=== PATIENT | female | born 1995 | race Caucasian/White ===

== ENCOUNTER 2018-02-05 14:46 | Inpatient (IN) | END 2018-02-09 11:38 | disposition home or self-care (01) | DRG 781 ==

== ENCOUNTER 2018-05-22 13:20 | Outpatient (CLI) | END 2018-05-22 18:42 | disposition home or self-care (01) ==

== ENCOUNTER 2018-09-23 14:43 | Outpatient (CLI) | payer OTHER ==
[~2018-09-23] VITALS: Ht 162.6 cm; Wt 89.9 kg
[~2018-09-23 14:43] MED LIST: INSU100C SQ; NPH,100I5 SQ; PREN-39 PO
[2018-09-23 15:11] VITALS: BP 142/82; PULSE 83; RESP 18; Ht 162.6 cm; Wt 89.9 kg
[2018-09-23] MEDS ORDERED: INSULIN ASPART [NOVOLOG] 3 ML PEN SC ONE (17:30)
[2018-09-23] MEDS ORDERED: INSULIN LISPRO 100 UNIT/ML VIAL SC ONE (17:30)
--- NOTE | 2018-09-23 20:41 | PN ---
Triage Information Date/Time Reason for visit: DFM Weeks of Gestation 37 weeks and 6 days /Para Diabetes: pre-gestational Diabetes management: insulin controlled Hypertention: none Objective Vital Signs Date Temp Pulse Resp B/P (MAP) Pulse Ox O2 O2 Flow FiO2 Time Delivery Rate 09/23/18 98.5 83 18 142/82 15:11 (102) Heart Rate: 130's Heart Rate Comments Reactive Results/Medications Results 24 hrs Laboratory Tests Test 09/23/18 18:00 Bedside Glucose 91 Disposition: Discharge Assessment/Plan Follow up in [facility] on 09/24/2018 TEODORA BRASHER MD Sep 23, 2018 20:41
--- NOTE | 2018-09-23 21:25 | TRIAGE ---
OB Triage Datetime Report Generated by CPN: 09/23/2018 21:25 Datetime: 09/23/2018 18:01 Bedside Blood Glucose: 91 Datetime: 09/23/2018 17:58 Labor Evaluation Frequency: 5-7 Monitor Mode: External Duration (sec)2399: 50-70 Quality: Mild Pattern: Normal: <= 5 Contractions in 10 Minutes Resting Tone [place]: Relaxed Heart Rate FHR Baseline Rate: 155 Monitor Mode: External US Variability: Moderate 6-25 bpm Accelerations: 10X10 Decelerations: None Category: Category I Pain Assessment Pain Scale: 0 Pain Presence: None/Denies Pain Type: N/A Pain Goal: 3 Pain Relief Measures: Comfort Measures Datetime: 09/23/2018 17:22 Stage of : OB Triage Datetime: 09/23/2018 17:00 Labor Evaluation Frequency: 4-6 Monitor Mode: External Duration (sec)2399: 50-70 Quality: Mild Pattern: Normal: <= 5 Contractions in 10 Minutes Resting Tone [place]: Relaxed Heart Rate FHR Baseline Rate: 175 Monitor Mode: External US Variability: Moderate 6-25 bpm Accelerations: None Decelerations: None Category: Category II Pain Assessment Pain Scale: 0 Pain Presence: None/Denies Pain Type: N/A Pain Goal: 3 Pain Relief Measures: Comfort Measures Datetime: 09/23/2018 16:48 Stage of : OB Triage Datetime: 09/23/2018 15:50 Labor Evaluation Frequency: 2-5 Monitor Mode: External Duration (sec)2399: 30-50 Quality: Mild Pattern: Normal: <= 5 Contractions in 10 Minutes Resting Tone [place]: Relaxed Heart Rate FHR Baseline Rate: 155 Monitor Mode: External US Variability: Moderate 6-25 bpm Accelerations: 10X10 Decelerations: None Category: Category I Pain Assessment Pain Scale: 0 Pain Presence: None/Denies Pain Type: N/A Pain Goal: 3 Pain Relief Measures: Comfort Measures Datetime: 09/23/2018 15:26 Stage of : OB Triage Datetime: 09/23/2018 14:56 Stage of : OB Triage Assessment Type: Triage Maternal Assessment Level of Consciousness: Fully Conscious DTR's/Clonus: DTRs 2+; No Clonus Headache: Denies Blurred Vision: No Respiratory Effort: Unlabored; Regular Rhythm; Equal Expansion Breath Sounds, Left: Clear and Equal Breath Sounds, Right: Clear and Equal Nausea/Vomiting: Denies RUQ Epigastric Pain: Denies Facial Edema: None Temperature Route: Axillary Fall Risk Assessment History of Falling: (0) No Secondary Diagnosis: (0) No Ambulatory Aid: (0) Bedrest/Nurse Assist IV Therapy: (0) No Gait: (0) Normal/Bedrest/Immobile Mental Status: (0) Oriented to Own Ability Fall Score: 0 Fall Risk Score Definition: No Risk: No action required Labor Evaluation Frequency: 2-3 Monitor Mode: External Duration (sec)2399: 30-50 Quality: Mild Pattern: Normal: <= 5 Contractions in 10 Minutes Resting Tone [place]: Relaxed Heart Rate FHR Baseline Rate: 150 Monitor Mode: External US Variability: Minimal - Undetectable to <=5 bpm Accelerations: None Decelerations: None Category: Category I Pain Assessment Pain Scale: 3 Pain Presence: Intermittent Pain Type: Cramping; Contraction Pain Location: Abdomen Pain Goal: 3 Pain Relief Measures: Comfort Measures Datetime: 09/23/2018 14:53 Time of Arrival: 09/23/2018 14:32 EGA: 37.6 Arrived By: Ambulatory Arrived From: Other Unit in Hospital Chief Complaint: REFERRRED FROM [facility] FOR DECEL AND EXTENDED MONITORING, OCCAS UC, POSSIBLE LEAKING, DENIES BLEEDING Movement: Decreased Contractions: Occasional Contractions: 2X HOUR Rupture of Membranes: Denies Vaginal Bleeding: None Vaginal Discharge: Present Recent Sexual Intercouse: Denies Abdominal Trauma: Not Applicable Patient Complaints: Cramping Initial Plan: MONITOR, VE Datetime: 08/26/2018 18:31 Stage of : Antepartum Datetime: 08/26/2018 18:26 Stage of : Antepartum Datetime: 08/26/2018 18:21 Stage of : Antepartum Datetime: 08/26/2018 17:15 Stage of : Antepartum Datetime: 08/26/2018 16:24 Stage of : Antepartum Temperature Route: Oral Pain Assessment Pain Scale: 0 Pain Presence: None/Denies Pain Type: N/A Datetime: 08/26/2018 16:20 Stage of : Antepartum Datetime: 08/26/2018 16:12 Stage of : Antepartum Datetime: 08/26/2018 16:10 Stage of : Antepartum Datetime: 08/26/2018 14:59 Stage of : Antepartum Bedside Blood Glucose: 151 (Annotations: @hour PPBS lunch) Datetime: 08/26/2018 14:00 Stage of : Antepartum Datetime: 08/26/2018 12:26 Stage of : Antepartum Datetime: 08/26/2018 12:22 Stage of : Antepartum Temperature Route: Oral Pain Assessment Pain Scale: 0 Pain Presence: None/Denies Pain Type: N/A Datetime: 08/26/2018 11:30 Stage of : Antepartum Datetime: 08/26/2018 11:19 Labor Evaluation Frequency: x1 Monitor Mode: External Duration (sec)2399: 70 Quality: Mild Pattern: Normal: <= 5 Contractions in 10 Minutes Resting Tone [place]: Relaxed Heart Rate FHR Baseline Rate: 150 Monitor Mode: External US FHR Baseline Changes: No Baseline Change Variability: Moderate 6-25 bpm Accelerations: 15X15 Decelerations: None Category: Category I Pain Assessment Pain Scale: 0 Pain Presence: None/Denies Pain Type: N/A Datetime: 08/26/2018 10:55 Bedside Blood Glucose: 97 (Annotations: 2 hour PPBS) Datetime: 08/26/2018 10:46 Monitor Mode: External Monitor Mode: External US Comments: NST started Datetime: 08/26/2018 07:59 Stage of : Antepartum Temperature Route: Oral Pain Assessment Pain Scale: 0 Pain Presence: None/Denies Pain Type: N/A Datetime: 08/26/2018 07:55 Bedside Blood Glucose: 105 (Annotations: FBS) Datetime: 08/26/2018 07:30 Assessment Type: Ongoing Assessment Maternal Assessment Level of Consciousness: Fully Conscious DTR's/Clonus: DTRs 2+; No Clonus Headache: Denies Blurred Vision: No Respiratory Effort: Unlabored; Regular Rhythm; Equal Expansion Breath Sounds, Left: Clear and Equal Breath Sounds, Right: Clear and Equal Nausea/Vomiting: Denies RUQ Epigastric Pain: Denies Lower Extremities Edema: None Degree: None Upper Extremities Edema: None Degree: None Facial Edema: None Fall Risk Assessment History of Falling: (0) No Secondary Diagnosis: (0) No Ambulatory Aid: (0) Bedrest/Nurse Assist IV Therapy: (0) No Gait: (0) Normal/Bedrest/Immobile Mental Status: (0) Oriented to Own Ability Fall Score: 0 Fall Risk Score Definition: No Risk: No action required Datetime: 08/26/2018 05:26 Maternal Assessment Level of Consciousness: Fully Conscious Headache: Denies Blurred Vision: No Respiratory Effort: Unlabored; Regular Rhythm; Equal Expansion Breath Sounds, Left: Clear and Equal Breath Sounds, Right: Clear and Equal Temperature Route: Oral Pain Presence: None/Denies Datetime: 08/26/2018 00:44 Stage of : Antepartum Temperature Route: Oral Comments: NST Q SHIFT,PT STATD FEELING BABBY MOVING. Pain Presence: None/Denies Datetime: 08/25/2018 23:11 Stage of : Antepartum Assessment Type: Ongoing Assessment Maternal Assessment Level of Consciousness: Fully Conscious DTR's/Clonus: DTRs 2+; No Clonus Headache: Denies Blurred Vision: No Respiratory Effort: Unlabored; Regular Rhythm; Equal Expansion Breath Sounds, Left: Clear and Equal Breath Sounds, Right: Clear and Equal Nausea/Vomiting: Denies RUQ Epigastric Pain: Denies Lower Extremities Edema: None Degree: None Upper Extremities Edema: None Degree: None Facial Edema: None Temperature Route: Oral Fall Risk Assessment History of Falling: (0) No Secondary Diagnosis: (0) No Ambulatory Aid: (0) Bedrest/Nurse Assist IV Therapy: (0) No Gait: (0) Normal/Bedrest/Immobile Mental Status: (0) Oriented to Own Ability Fall Score: 0 Fall Risk Score Definition: No Risk: No action required Pain Presence: None/Denies Datetime: 08/25/2018 21:31 Fall Score: 0 Fall Risk Score Definition: No Risk: No action required Datetime: 08/25/2018 20:35 EGA: 33.5 Datetime: 08/25/2018 20:23 Fall Score: 0 Fall Risk Score Definition: No Risk: No action required Datetime: 05/22/2018 13:45 Fall Score: 0 Fall Risk Score Definition: No Risk: No action required Datetime: 05/22/2018 13:44 EGA: 20.1 Datetime: 02/05/2018 20:05 Fall Score: 0 Fall Risk Score Definition: No Risk: No action required Datetime: 02/05/2018 15:13 Fall Score: 0 Fall Risk Score Definition: No Risk: No action required Datetime: 02/05/2018 14:46 EGA: 5.0 Datetime: 02/05/2018 14:45 EGA: -47.1
== END 2018-09-23 20:42 | disposition home or self-care (01) ==
LOC: OBT 14:43 → L-D 14:44 → OBT 20:42
PROVIDERS: ATTEND Obstetrics & Gynecology
DX: O36.8130 Decreased fetal movements, third trimester, not applicable or unspecified (principal); Z3A.37 37 weeks gestation of pregnancy; O24.313 Unspecified pre-existing diabetes mellitus in pregnancy, third trimester; E11.8 Type 2 diabetes mellitus with unspecified complications; Z79.4 Long term (current) use of insulin
CPT/HCPCS: 76818; 82962; J1815; Z7500; G0463

== ENCOUNTER 2018-09-25 15:09 | Outpatient (CLI) | payer OTHER ==
[~2018-09-25] VITALS: Ht 162.6 cm; Wt 91.0 kg
[2018-09-25 15:45] VITALS: Ht 162.6 cm; Wt 91.0 kg
[2018-09-25 15:46] VITALS: BP 126/84; PULSE 83; RESP 18
--- NOTE | 2018-09-25 17:33 | TRIAGE ---
OB Triage Datetime Report Generated by CPN: 09/25/2018 17:33 Datetime: 09/25/2018 16:54 Stage of : OB Triage Datetime: 09/25/2018 16:21 Frequency: 6-7 Monitor Mode: External Duration (sec)2399: 40-50 Quality: Mild Pattern: Normal: <= 5 Contractions in 10 Minutes Resting Tone [place]: Relaxed FHR Baseline Rate: 145 Monitor Mode: External US Variability: Moderate 6-25 bpm Accelerations: 10X10 Decelerations: None Category: Category I Pain Scale: 1 Pain Presence: Intermittent Pain Type: Cramping Pain Location: Abdomen Pain Goal: 3 Pain Relief Measures: Comfort Measures Datetime: 09/25/2018 16:20 Stage of : OB Triage Datetime: 09/25/2018 15:39 Stage of : OB Triage Datetime: 09/25/2018 15:20 Stage of : OB Triage Assessment Type: Triage Level of Consciousness: Fully Conscious DTR's/Clonus: DTRs 2+; No Clonus Headache: Denies Blurred Vision: No Respiratory Effort: Unlabored; Regular Rhythm; Equal Expansion Breath Sounds, Left: Clear and Equal Breath Sounds, Right: Clear and Equal Nausea/Vomiting: Denies RUQ Epigastric Pain: Denies Facial Edema: None Temperature Route: Axillary History of Falling: (0) No Secondary Diagnosis: (0) No Ambulatory Aid: (0) Bedrest/Nurse Assist IV Therapy: (0) No Gait: (0) Normal/Bedrest/Immobile Mental Status: (0) Oriented to Own Ability Fall Score: 0 Fall Risk Score Definition: No Risk: No action required Frequency: 6-7 Monitor Mode: External Duration (sec)2399: 40-60 Quality: Mild Pattern: Normal: <= 5 Contractions in 10 Minutes Resting Tone [place]: Relaxed FHR Baseline Rate: 145 Monitor Mode: External US Variability: Moderate 6-25 bpm Accelerations: 10X10 Decelerations: None Category: Category I Pain Scale: 1 Pain Presence: None/Denies Pain Type: Cramping Pain Location: Abdomen Pain Goal: 3 Pain Relief Measures: Comfort Measures Datetime: 09/25/2018 15:02 Time of Arrival: 09/25/2018 15:02 EGA: 38.1 Chief Complaint: REFERRRED FROM [facility] FOR DECEL AND EXTENDED MONITORING, OCCAS UC, POSSIBLE LEAKING, DENIES BLEEDING Movement: Present Contractions: Irregular Rupture of Membranes: Denies Vaginal Bleeding: None Vaginal Discharge: Denies Recent Sexual Intercouse: Denies Abdominal Trauma: Not Applicable Patient Complaints: Cramping Time Provider Notified: 09/25/2018 15:39 Provider Notified: ANSHU Initial Plan: MONITOR, BPP Datetime: 09/23/2018 20:36 Stage of : OB Triage Monitor Mode: External Quality: Mild Pattern: Normal: <= 5 Contractions in 10 Minutes Resting Tone [place]: Relaxed FHR Baseline Rate: 130 Monitor Mode: External US FHR Baseline Changes: No Baseline Change Variability: Moderate 6-25 bpm Accelerations: 15X15 Decelerations: None Category: Category I Datetime: 09/23/2018 19:33 Stage of : OB Triage Frequency: ocas Monitor Mode: External Quality: Mild Pattern: Normal: <= 5 Contractions in 10 Minutes Resting Tone [place]: Relaxed FHR Baseline Rate: 140 Monitor Mode: External US FHR Baseline Changes: No Baseline Change Variability: Moderate 6-25 bpm Accelerations: 15X15 Decelerations: None Category: Category I Pain Scale: 0 Pain Presence: None/Denies Pain Type: N/A
--- NOTE | 2018-09-25 18:48 | PN ---
Triage Information Date/Time September 25, 2018 Reason for visit: Weeks of Gestation 38 weeks and 1 day /Para 4 para 3 Diabetes: pre-gestational Diabetes management: insulin controlled Hypertention: none Additional information 23-year-old with IUP at 38 weeks and 1 day and type 2 diabetes pre- gestational was sent for testing. She had been followed for testing twice a week and [facility]. Patient denies any leaking of fluid, vaginal bleeding or contractions. Denies any complaint today. Objective Vital Signs Date Temp Pulse Resp B/P (MAP) Pulse Ox O2 O2 Flow FiO2 Time Delivery Rate 09/25/18 98.6 83 18 126/84 15:46 (98) Heart Rate: 130's Heart Rate Comments category 1 Contractions: None Exam Appearance: Alert and oriented x4 does not appear to be in any acute distress Abdomen: Soft, gravid, fundal height consider gestational age, no tenderness, no rebound tenderness, no guarding or rigidity No contraction noted on the monitor NST: Category 1 and reactive BPP: 02/26 BEL: 13.6 Results/Medications Results 24 hrs Laboratory Tests Test 09/25/18 15:34 Bedside Glucose 176 Imaging Results PROCEDURE: US OB biophysical profile. CLINICAL INDICATION: decreased movements, diabetes TECHNIQUE: Multiple sonographic images of the pelvis were obtained. The images were reviewed on a PACS workstation. COMPARISON: 09/23/2018 FINDINGS: There is a single live intrauterine gestation. Cardiac activity is present with 171 beats per minute. There is a vertex presentation. The placenta is left lateral. There is no evidence of placental abruption. There is a normal amount of amniotic fluid with an BEL = 13.6 cm. Biophysical profile: movement 2/2 tone 2/2. breathing 2/2 BEL 2/2 Total 02/26 RPTAT: AA . IMPRESSION: Normal biophysical profile. . Disposition: Discharge Assessment/Plan IUP at 38 weeks and 1 day Pre-gestational diabetes, type II testing reassuring Patient has a follow-up with her primary OB office tomorrow She is a stable for discharge. NST reactive, BPP 02/26 Strict labor precautions kick count and giving her follow-up appointment tomorrow with her primary OB discussed with the patient Follow-up with NST/BPP twice a week and plan for delivery to be established by her primary OB discussed with the patient Patient verbalized understanding. Advised the patient to return to triage if she has any leaking, contractions, decreased movement or any other concern immediately Patient verbalized understanding. All questions were answered to patient's best satisfaction WATSON BROWN MD Sep 25, 2018 18:48
== END 2018-09-25 17:10 | disposition home or self-care (01) ==
LOC: OBT 15:09 → L-D 15:10 → OBT 17:10
PROVIDERS: ATTEND Obstetrics & Gynecology
DX: O24.414 Gestational diabetes mellitus in pregnancy, insulin controlled (principal); Z3A.38 38 weeks gestation of pregnancy
CPT/HCPCS: 76818; 82962; Z7500; G0463

== ENCOUNTER 2018-09-26 16:32 | Inpatient (IN) | payer OTHER ==
[~2018-09-26] VITALS: Ht 162.6 cm; Wt 91.1 kg
[2018-09-26 16:59] VITALS: Ht 162.6 cm; Wt 91.1 kg
[2018-09-26 17:00] VITALS: BP 173/90; PULSE 90; RESP 18
[2018-09-26] MEDS ORDERED: LACTATED RINGER'S 1,000 ML IV SCH (18:37)
[2018-09-26] MEDS ORDERED: OXYTOCIN 30 UNITS/LR 500 ML IV SCH ×3 (19:00→22:00)
[2018-09-26] MEDS ORDERED: OXYTOCIN 30 UNITS/LR 500 ML IV PRN (19:00)
[2018-09-26] MEDS ORDERED: LIDOCAINE 1% (MPF) 30 ML INJ INJ PRN (19:00)
[2018-09-26] MEDS ORDERED: MISOPROSTOL 200 MCG TAB PR PRN (19:00)
[2018-09-26] MEDS ORDERED: METHYLERGONOVINE 0.2 MG INJ IM PRN (19:00)
[2018-09-26] MEDS ORDERED: CARBOPROST 250 MCG INJ IM PRN (19:00)
[2018-09-26] MEDS ORDERED: AMPICILLIN 2 GM/NS (PMX) 100 ML IV ONE (22:00)
[2018-09-26] MEDS ORDERED: MINERAL OIL LIGHT 10 ML VIAL TOP PRN (22:00)
[2018-09-26] MEDS: LACTATED RINGER'S 1,000 ML IV SCH (22:34)
--- NOTE | 2018-09-27 00:23 | TRIAGE ---
OB Triage Datetime Report Generated by CPN: 09/27/2018 00:23 Datetime: 09/27/2018 00:00 Stage of : Labor Frequency: 1-5.5 Monitor Mode: External Duration (sec)2399: 70-180 Quality: Moderate Pattern: Normal: <= 5 Contractions in 10 Minutes Resting Tone [place]: Relaxed FHR Baseline Rate: 135 Monitor Mode: External US Variability: Moderate 6-25 bpm Accelerations: 15X15 Decelerations: None Category: Category I Pain Scale: 3 Pain Presence: Intermittent Pain Type: Cramping Pain Location: Abdomen Pain Goal: 3 Pain Relief Measures: Comfort Measures Datetime: 09/26/2018 23:30 Stage of : Labor Frequency: 1-7 Monitor Mode: External Duration (sec)2399: 50-80 Quality: Mild Pattern: Normal: <= 5 Contractions in 10 Minutes Resting Tone [place]: Relaxed FHR Baseline Rate: 135 Monitor Mode: External US Variability: Moderate 6-25 bpm Accelerations: 15X15 Decelerations: None Category: Category I Pain Presence: None/Denies Datetime: 09/26/2018 23:02 Assessment Type: Admission Assessment Vaginal Bleeding: None Level of Consciousness: Fully Conscious DTR's/Clonus: DTRs 2+; No Clonus Headache: Denies Blurred Vision: No Respiratory Effort: Unlabored; Regular Rhythm; Equal Expansion Breath Sounds, Left: Clear and Equal Breath Sounds, Right: Clear and Equal Nausea/Vomiting: Denies RUQ Epigastric Pain: Denies Lower Extremities Edema: None Upper Extremities Edema: None Facial Edema: None History of Falling: (0) No Secondary Diagnosis: (0) No Ambulatory Aid: (0) Bedrest/Nurse Assist IV Therapy: (0) No Gait: (0) Normal/Bedrest/Immobile Mental Status: (0) Oriented to Own Ability Fall Score: 0 Fall Risk Score Definition: No Risk: No action required Pain Presence: None/Denies Membrane Status: Intact Datetime: 09/26/2018 23:00 Stage of : Labor Frequency: 2-12 Monitor Mode: External Duration (sec)2399: 50-120 Quality: Mild Pattern: Normal: <= 5 Contractions in 10 Minutes Resting Tone [place]: Relaxed FHR Baseline Rate: 140 Monitor Mode: External US Variability: Moderate 6-25 bpm Accelerations: 15X15 Decelerations: None Category: Category I Pain Presence: None/Denies Datetime: 09/26/2018 22:00 Stage of : Labor Frequency: 2-10 Monitor Mode: External Duration (sec)2399: 50-120 Quality: Mild Pattern: Normal: <= 5 Contractions in 10 Minutes Resting Tone [place]: Relaxed FHR Baseline Rate: 135 Monitor Mode: External US Variability: Moderate 6-25 bpm Accelerations: 15X15 Decelerations: None Category: Category I Pain Presence: None/Denies Datetime: 09/26/2018 21:16 Dilatation (cms): 4.0 Effacement (%): 50 Station: -2 Exam By: BELLA Vaginal Bleeding: None Cervix, Consistency: Soft Cervix, Position: Midposition Datetime: 09/26/2018 21:00 Stage of : Labor Frequency: 3-10 Monitor Mode: External Duration (sec)2399: 50-120 Quality: Mild Pattern: Normal: <= 5 Contractions in 10 Minutes Resting Tone [place]: Relaxed FHR Baseline Rate: 140 Monitor Mode: External US Variability: Moderate 6-25 bpm Accelerations: 15X15 Decelerations: None Category: Category I Pain Presence: None/Denies Datetime: 09/26/2018 20:00 Stage of : Labor Frequency: 1-10 Monitor Mode: External Duration (sec)2399: 50-120 Quality: Mild Pattern: Normal: <= 5 Contractions in 10 Minutes Resting Tone [place]: Relaxed FHR Baseline Rate: 135 Monitor Mode: External US Variability: Moderate 6-25 bpm Accelerations: 15X15 Decelerations: None Category: Category I Datetime: 09/26/2018 19:31 Bedside Blood Glucose: 120 Datetime: 09/26/2018 19:26 Assessment Type: Triage Level of Consciousness: Fully Conscious DTR's/Clonus: DTRs 2+; No Clonus Headache: Denies Blurred Vision: No Respiratory Effort: Unlabored; Regular Rhythm; Equal Expansion Breath Sounds, Left: Clear and Equal Breath Sounds, Right: Clear and Equal Nausea/Vomiting: Denies RUQ Epigastric Pain: Denies Lower Extremities Edema: None Degree: None Upper Extremities Edema: None Degree: None Facial Edema: None History of Falling: (0) No Secondary Diagnosis: (0) No Ambulatory Aid: (0) Bedrest/Nurse Assist IV Therapy: (0) No Gait: (0) Normal/Bedrest/Immobile Mental Status: (0) Oriented to Own Ability Fall Score: 0 Fall Risk Score Definition: No Risk: No action required Datetime: 09/26/2018 19:00 Stage of : Labor Frequency: 1-8 Monitor Mode: External Duration (sec)2399: 60-150 Quality: Mild Pattern: Normal: <= 5 Contractions in 10 Minutes Resting Tone [place]: Relaxed FHR Baseline Rate: 140 Monitor Mode: External US Variability: Moderate 6-25 bpm Accelerations: 15X15 Decelerations: Late; Prolonged (Annotations: MILD DECEL 140-132BPM THEN BACK TO 140) Category: Category II Datetime: 09/26/2018 18:14 Stage of : OB Triage Datetime: 09/26/2018 18:12 Stage of : OB Triage Datetime: 09/26/2018 18:00 Stage of : OB Triage Frequency: 1-9 Monitor Mode: External Duration (sec)2399: 60-130 Quality: Mild Pattern: Normal: <= 5 Contractions in 10 Minutes Resting Tone [place]: Relaxed FHR Baseline Rate: 140 Monitor Mode: External US Variability: Moderate 6-25 bpm Accelerations: 15X15 Decelerations: None Category: Category I Datetime: 09/26/2018 16:54 Stage of : OB Triage Assessment Type: Triage Level of Consciousness: Fully Conscious DTR's/Clonus: DTRs 2+; No Clonus Headache: Denies Blurred Vision: No Respiratory Effort: Unlabored; Regular Rhythm; Equal Expansion Breath Sounds, Left: Clear and Equal Breath Sounds, Right: Clear and Equal Nausea/Vomiting: Denies RUQ Epigastric Pain: Denies Facial Edema: None Temperature Route: Axillary History of Falling: (0) No Secondary Diagnosis: (0) No Ambulatory Aid: (0) Bedrest/Nurse Assist IV Therapy: (0) No Gait: (0) Normal/Bedrest/Immobile Mental Status: (0) Oriented to Own Ability Fall Score: 0 Fall Risk Score Definition: No Risk: No action required Monitor Mode: External Quality: Mild Pattern: Normal: <= 5 Contractions in 10 Minutes Resting Tone [place]: Relaxed FHR Baseline Rate: 165 Monitor Mode: External US Variability: Moderate 6-25 bpm Decelerations: None Pain Scale: 3 Pain Presence: None/Denies Pain Type: N/A Pain Goal: 0 Datetime: 09/26/2018 16:51 Time of Arrival: 09/26/2018 16:29 EGA: 38.2 Arrived By: Ambulatory Arrived From: Home Chief Complaint: REFERRED FROM CLINIC FOR DFM, DENIES LEAKING, BLEEDING OR UC'S Movement: Decreased Contractions: Denies/Absent Rupture of Membranes: Denies Vaginal Bleeding: None Vaginal Discharge: Denies Recent Sexual Intercouse: Denies Abdominal Trauma: Not Applicable Patient Complaints: None Initial Plan: MONITOR, BPP, EFW Datetime: 09/25/2018 15:20 Fall Score: 0 Fall Risk Score Definition: No Risk: No action required Datetime: 09/25/2018 15:02 EGA: 38.1 Datetime: 09/23/2018 14:56 Fall Score: 0 Fall Risk Score Definition: No Risk: No action required Datetime: 09/23/2018 14:53 EGA: 37.6 Datetime: 08/26/2018 07:30 Fall Score: 0 Fall Risk Score Definition: No Risk: No action required Datetime: 08/25/2018 23:11 Fall Score: 0 Fall Risk Score Definition: No Risk: No action required Datetime: 08/25/2018 21:31 Fall Score: 0 Fall Risk Score Definition: No Risk: No action required Datetime: 08/25/2018 20:35 EGA: 33.5 Datetime: 08/25/2018 20:23 Fall Score: 0 Fall Risk Score Definition: No Risk: No action required Datetime: 05/22/2018 13:45 Fall Score: 0 Fall Risk Score Definition: No Risk: No action required Datetime: 05/22/2018 13:44 EGA: 20.1 Datetime: 02/05/2018 20:05 Fall Score: 0 Fall Risk Score Definition: No Risk: No action required Datetime: 02/05/2018 15:13 Fall Score: 0 Fall Risk Score Definition: No Risk: No action required Datetime: 02/05/2018 14:55 Presentation 'A': Cephalic
[2018-09-27] MEDS: LACTATED RINGER'S 1,000 ML IV SCH ×2 (02:18→09:53)
[2018-09-27] MEDS: AMPICILLIN 1 GM/NS (PMX) 50 ML IV SCH ×3 (02:18→10:40)
[2018-09-27] MEDS: DEXTROSE 5%-LR 1,000 ML IV SCH ×2 (02:51→07:52)
[2018-09-27] MEDS ORDERED: CITRIC ACID/NA CITRATE 30 ML CUP ONE (09:46)
[2018-09-27] MEDS ORDERED: CITRIC ACID/NA CITRATE 30 ML CUP PO ONE (10:00)
--- NOTE | 2018-09-27 10:07 | PREAC ---
Date/Time of Note Date/Time of Note DATE: 09/27/18 TIME: 10:05 Anesthesia Eval and Record Evaluation Time Pre-Procedure Interview DATE: 09/27/18 TIME: 10:05 Age 23 Sex female NPO: 8 hrs Preoperative diagnosis LABOR PAIN Planned procedure LABOR EPIDURAL Past Medical History Past Medical History: Includes Endo: Diabetes : : (4), Para: (3), Gestational age: (38 3/7), PIH Surgery & Anesthesia Issues No known issue Meds Anticoagulation: No Beta Graham within 24 hr: No Reason Beta Graham not given: Pt. not on B-Graham Reported Medications NPH, Human Insulin Isophane (Humulin N Kwikpen) 100 Unit/1 Ml Insuln.pen, 35 UNIT SQ AC BREAKFAST DINNER, EA 08/25/18 Insulin Lispro (Humalog) 100 Unit/1 Ml Cartridge, 25 UNIT SQ AC BREAKFAST DINNER, EA 08/25/18 Vits W-Ca,Fe,Fa(<1MG) ( Vitamins) 1 Tab Tablet, 1 TAB PO DAILY 12/03/12 Current Medications Lactated Ringer's 1,000 ml @ 125 mls/hr Q8H IV Last administered on 09/27/18at 09:53; Admin Dose 125 MLS/HR; Start 09/26/18 at 18:37 Dextrose/Lactated Ringer's 1,000 ml @ 125 mls/hr Q8H IV Last administered on 09/27/18at 02:51; Admin Dose 125 MLS/HR; Start 09/26/18 at 18:37 Lidocaine (Xylocaine 1% (Mpf)) 30 ml ONCE PRN INJ .EPISIOTOMY; Start 09/26/18 at 19:00 Oxytocin/Lactated Ringer's 500 ml @ 500 mls/hr ONCE POST IV ; Start 09/26/18 at 19:00 Oxytocin/Lactated Ringer's 500 ml @ 125 mls/hr POST IV ; Start 09/26/18 at 19:00 Oxytocin/Lactated Ringer's 500 ml @ 0 mls/hr ONCE PRN IV .VAGINAL BLEEDING; Start 09/26/18 at 19:00 Methylergonovine Maleate (Methergine) 0.2 mg ONCE PRN IM .VAGINAL BLEEDING; Start 09/26/18 at 19:00 Carboprost Tromethamine (Hemabate) 250 mcg ONCE PRN IM .VAGINAL BLEEDING; Start 09/26/18 at 19:00 Misoprostol (Cytotec) 1,000 mcg ONCE PRN NE .VAGINAL BLEEDING; Start 09/26/18 at 19:00 Ampicillin 50 ml @ 100 mls/hr Q4H IV Last administered on 09/27/18at 06:30; Admin Dose 100 MLS/HR; Start 09/27/18 at 02:00 Oxytocin/Lactated Ringer's 500 ml @ 0 mls/hr FOR INDUCTION IV Last administered on 09/26/18at 23:10; Admin Dose 1 MLS/HR; Start 09/26/18 at 22:00 Meds reviewed: Yes Allergies Coded Allergies: ciprofloxacin (Verified Allergy, Intermediate, RASH OVER FACE AND NECK, ) RE-ENTERED UNCODED ALLERGY CODED Allergies Reviewed: Yes Labs/Studies Labs Reviewed: Reviewed by anesthesiologist Result Diagram: 09/26/18 1900 09/26/18 1900 Laboratory Tests 09/26/18 19:00 Blood Bank Test 09/26/18 19:00 Antibody Screen NEGATIVE Blood Type O POSITIVE Rh Immune Globulin Candidate NO test: N/A Pre-procedure Exam Last vitals Vital Signs Date Temp Pulse Resp B/P (MAP) Pulse Ox O2 O2 Flow FiO2 Time Delivery Rate 09/26/18 98.4 90 18 173/90 17:00 (117) Airway: Adequate mouth opening, Adequate thyromental dist Mallampati: Mallampati II Teeth: Normal Lung: Normal Heart: Normal ASA Physical Status ASA physical status: 2 Emergency: None Planned Anesthetic Neuraxial: Epidural Planned Pain Management Epidural Pre-operative Attestations Prior to commencing anesthesia and surgery, the patient was re-evaluated, there was verification of: *The patient's identity *The results of appropriate recent lab work and preoperative vital signs *The above evaluation not changing prior to induction *Anesthetic plan, risk benefits, alternative and complications discussed with patient/family; questions answered; patient/family understands, accepts and wishes to proceed. Jeff Aviles M.D. Sep 27, 2018 10:07
[2018-09-27] MEDS ORDERED: FENTAnyl 2MCG/ML-ROPIV 0.2% 100 ML ONE (10:08)
--- NOTE | 2018-09-27 10:40 | PAC ---
Date/Time of Note Date/Time of Note DATE: 09/27/18 TIME: 10:40 Post-Anesthesia Notes Post-Anesthesia Note Last documented vital signs Vital Signs Date Temp Pulse Resp B/P (MAP) Pulse Ox O2 O2 Flow FiO2 Time Delivery Rate 09/27/18 98.4 90 18 173/90 10:40 (117) Activity: WNL Respiratory function: WNL Cardiovascular function: WNL Mental status: Baseline Pain reasonably controlled: Yes Hydration appropriate: Yes Nausea/Vomiting absent: Yes Jeff Aviles M.D. Sep 27, 2018 10:40
[2018-09-27] MEDS ORDERED: FENTAnyl 2MCG/ML-ROPIV 0.2% 100 ML BAG EPI SCH (11:00)
[2018-09-27] MEDS ORDERED: NALOXONE (0.4 MG/ML) INJ IV PRN (11:00)
[2018-09-27] MEDS ORDERED: TRIMETHOBENZAMIDE 100 MG/ML VIAL IM PRN (11:00)
[2018-09-27] MEDS ORDERED: DIPHENHYDRAMINE 50 MG INJ IV PRN (11:00)
[2018-09-27] MEDS ORDERED: ONDANSETRON 4 MG INJ IV PRN (11:00)
--- NOTE | 2018-09-27 15:24 | LDN ---
Date/Time of Note Date/Time of Note DATE: 09/27/18 TIME: 15:21 Delivery Summary of female with subtle facial feature ? NIPT was done but no result is available Weeks of Gestation 38w2d Placenta Delivered: Spontaneously, Intact & Complete Episiotomy: No Perineal laceration: 0 Anesthesia type: Epidural Estimated blood loss: 200 Sponge & Needle done & correct: Yes All needle counts correct: Yes Any foreign bodies felt in the: No Delivery Information Sex Infant Sex: female Apgars 1 Minute: 8 5 Minute: 9 Suctioning Nose & mouth suctioned at judi: Yes Delee suction performed: Yes Umbilical Cord Umbilical cord with: 3 Vessels Cord presentations: no nuchal cord Cord Blood was obtained: Yes Mother & Baby Disposition Disposition Mom & Baby to Maternity; Good: Yes Mom transferred to: Other Baby to NICU: No () VIVIANE DEVLIN MD Sep 27, 2018 15:24
--- NOTE | 2018-09-27 15:26 | HP ---
Date/Time of Note Date/Time of Note DATE: 09/27/18 TIME: 15:21 OB - History Hx of Present Chief Complaint: Decreased movement Estimated Due Date: Oct 08, 2018 : 4 Para: 3 Spontaneous : 0 Therapeutic : 0 Care: Good Care Ultrasounds: Normal mid trimester US Obstetrical Complications: Pre-eclampsia Medical Complications: Other (Type II DM) Past Family/Social History * Past Medical, Surgical, Family and Obstetric Histories reviewed from chart. GBS Status: Positive OB Admission Exam Vital Signs Vital Signs Vital Signs Date Temp Pulse Resp B/P (MAP) Pulse Ox O2 O2 Flow FiO2 Time Delivery Rate 09/26/18 98.4 90 18 173/90 17:00 (117) Physical Exam HEENT: WNL Heart: Rhythm Normal Lungs: Clear, Equal Abdomen: WNL Extremities: Normal Reflexes: Normal Cervical Dilatation: 4cm Effacement: 50% Station: -2 Membranes: Intact Heart Rate: 120's Accelerations: Accelerations Present Decelerations: No Decelerations Varibility: Moderate Last 72 hourBlood Glucose Bedside Glucose - 72 Hours Test 09/26/18 19:31 09/26/18 23:30 09/27/18 02:21 09/27/18 04:39 Bedside 120 105 99 123 Glucose mg/dL (70-220) mg/dL (70-220) mg/dL (70-220) mg/dL (70-220) Test 09/27/18 06:33 09/27/18 08:38 09/27/18 11:00 09/27/18 13:35 Bedside 103 103 119 154 Glucose mg/dL (70-220) mg/dL (70-220) mg/dL (70-220) mg/dL (70-220) Last 72 hours Lab Results CBC & BMP 09/26/18 19:00 Liver Function Test 09/26/18 19:00 Alanine Aminotransferase (ALT/SGPT) 8 L Albumin 3.4 Alkaline Phosphatase 134 H Aspartate Amino Transf (AST/SGOT) 14 L Direct Bilirubin 0.00 Total Protein 6.9 OB Assessment/Plan Reason for admission: induction of labor Plan: Induction Induction Method: per Pitocin Protocol TEODORA BRASHER MD Sep 27, 2018 15:26
--- NOTE | 2018-09-27 15:30 | LDN ---
Date/Time of Note Date/Time of Note DATE: 09/27/18 TIME: 15:27 Delivery Summary Weeks of Gestation 38 weeks and 3 days Placenta Delivered: Spontaneously Meconium: none Episiotomy: No Anesthesia type: Epidural Estimated blood loss: 200 Sponge & Needle done & correct: Yes All needle counts correct: Yes Any foreign bodies felt in the: No Delivery Information Sex Infant Sex: female Apgars 1 Minute: 8 5 Minute: 9 Suctioning Nose & mouth suctioned at judi: No Delee suction performed: No Umbilical Cord Umbilical cord with: 3 Vessels Cord presentations: no nuchal cord Cord Blood was obtained: Yes Mother & Baby Disposition Disposition Mom & Baby to Maternity; Good: Yes TEODORA BRASHER MD Sep 27, 2018 15:30
--- NOTE | 2018-09-27 15:36 | HP ---
Date/Time of Note Date/Time of Note DATE: 09/27/18 TIME: 15:25 OB - History Hx of Present Free Text/Dictation 23y.o here at 38w2d for IOL for GHTN/preclampsia, BDM( IDDM ) EFW 3430gm BPP8/8 BEL 16.9 VE 4/50/-2 GBS positive ampicillin started. admitted for pitocin augmentation. robi BS 105 Chief Complaint: IOL Estimated Due Date: Oct 08, 2018 : 4 Para: 3 Spontaneous : 0 Therapeutic : 0 Care: Good Care Ultrasounds: Normal mid trimester US Obstetrical Complications: Other (BDM (IDDM)) Past Family/Social History * Past Medical, Surgical, Family and Obstetric Histories reviewed from chart. Blood Type: O+ Rubella: not immune RPR/VDRL: Negative GBS Status: Positive HBsAG: Negative OB Admission Exam Vital Signs Vital Signs Vital Signs Date Temp Pulse Resp B/P (MAP) Pulse Ox O2 O2 Flow FiO2 Time Delivery Rate 09/26/18 98.4 90 18 173/90 17:00 (117) Physical Exam HEENT: WNL Heart: Rhythm Normal Lungs: Clear, Equal Abdomen: WNL Extremities: Normal Reflexes: Normal Cervical Dilatation: 4cm Effacement: 50% Station: -2 Membranes: Intact Amniotic Fluid: Unevaluable Heart Rate: 150's Accelerations: Accelerations Present Decelerations: No Decelerations Varibility: Moderate Contractions on Admission: 6-10 Minutes Apart Intensity: Mild Last 72 hourBlood Glucose Bedside Glucose - 72 Hours Test 09/26/18 19:31 09/26/18 23:30 09/27/18 02:21 09/27/18 04:39 Bedside 120 105 99 123 Glucose mg/dL (70-220) mg/dL (70-220) mg/dL (70-220) mg/dL (70-220) Test 09/27/18 06:33 09/27/18 08:38 09/27/18 11:00 09/27/18 13:35 Bedside 103 103 119 154 Glucose mg/dL (70-220) mg/dL (70-220) mg/dL (70-220) mg/dL (70-220) Last 72 hours Lab Results CBC & BMP 09/26/18 19:00 Liver Function Test 09/26/18 19:00 Alanine Aminotransferase (ALT/SGPT) 8 L Albumin 3.4 Alkaline Phosphatase 134 H Aspartate Amino Transf (AST/SGOT) 14 L Direct Bilirubin 0.00 Total Protein 6.9 OB Assessment/Plan Reason for admission: induction of labor Other Assessment: IUP 38w2d IDDM GHTN Plan: Induction Induction Method: per Pitocin Protocol VIVIANE DEVLIN MD Sep 27, 2018 15:36
[2018-09-27 16:20] VITALS: BP 123/73; PULSE 82; RESP 18
--- NOTE | 2018-09-27 16:34 | CONS ---
Assessment/Plan Assessment/Plan Problems: (1) Diabetes mellitus type 2 in obese Status: Chronic Comment: Resume metformin and follow the Accu-Cheks closely to see if we need to be giving any supplemental medications. Please note it will be insulin given that she will be breast-feeding (2) 4 para 4 Comment: Noted and now safely . Because there is notes of hyperemesis gravidarum and hypertension watch carefully post (3) Asthma, mild intermittent Status: Chronic Comment: Noted but not active at this moment Qualifiers: Qualified Codes: J45.20 - Mild intermittent asthma, uncomplicated (4) Migraine syndrome Status: Chronic Comment: Noted. Consultation Date/Type/Reason Admit Date/Time Sep 26, 2018 at 18:15 Date of Consultation: Sep 27, 2018 Type of Consult Endocrinology Reason for Consultation Diabetes mellitus type 2 now ; asthma intermittent mild; migraine syndrome Requesting Provider: TEODORA BRASHER MD Date/Time of Note DATE: 09/27/18 TIME: 16:30 Hx of Present Illness 23-year-old female Ab0 now by hours. She has history of diabetes mellitus type 2 and is normally maintained on oral agents when not . Her regular physician is at [facility] office under the management of Dr. Cesar Vincent. She generally sees the nurse practitioner's. During her Dr. Weston he had been managing her sugars and had her on insulin. She is now and Dr. Weston he has signed off Constitutional: no complaints ENT: no complaints Respiratory: no complaints Cardiovascular: no complaints Gastrointestinal: no complaints Past Medical History Medical History: diabetes (Type II), other (Migraine syndrome; asthma intermittent mild; Ab0) Home Meds Reported Medications NPH, Human Insulin Isophane (Humulin N Kwikpen) 100 Unit/1 Ml Insuln.pen, 35 UNIT SQ AC BREAKFAST DINNER, EA 08/25/18 Insulin Lispro (Humalog) 100 Unit/1 Ml Cartridge, 25 UNIT SQ AC BREAKFAST DINNER, EA 08/25/18 Vits W-Ca,Fe,Fa(<1MG) ( Vitamins) 1 Tab Tablet, 1 TAB PO DAILY 12/03/12 Medications Current Medications Lactated Ringer's 1,000 ml @ 125 mls/hr Q8H IV Last administered on 09/27/18at 09:53; Admin Dose 125 MLS/HR; Start 09/26/18 at 18:37 Dextrose/Lactated Ringer's 1,000 ml @ 125 mls/hr Q8H IV Last administered on 09/27/18at 02:51; Admin Dose 125 MLS/HR; Start 09/26/18 at 18:37 Lidocaine (Xylocaine 1% (Mpf)) 30 ml ONCE PRN INJ .EPISIOTOMY; Start 09/26/18 at 19:00 Oxytocin/Lactated Ringer's 500 ml @ 500 mls/hr ONCE POST IV ; Start 09/26/18 at 19:00 Oxytocin/Lactated Ringer's 500 ml @ 125 mls/hr POST IV Last administered on 09/27/18at 13:08; Admin Dose 125 MLS/HR; Start 09/26/18 at 19:00 Oxytocin/Lactated Ringer's 500 ml @ 0 mls/hr ONCE PRN IV .VAGINAL BLEEDING; Start 09/26/18 at 19:00 Methylergonovine Maleate (Methergine) 0.2 mg ONCE PRN IM .VAGINAL BLEEDING; Start 09/26/18 at 19:00 Carboprost Tromethamine (Hemabate) 250 mcg ONCE PRN IM .VAGINAL BLEEDING; Start 09/26/18 at 19:00 Misoprostol (Cytotec) 1,000 mcg ONCE PRN VT .VAGINAL BLEEDING; Start 09/26/18 at 19:00 Ampicillin 50 ml @ 100 mls/hr Q4H IV Last administered on 09/27/18at 10:40; Admin Dose 100 MLS/HR; Start 09/27/18 at 02:00 Oxytocin/Lactated Ringer's 500 ml @ 0 mls/hr FOR INDUCTION IV Last administered on 09/26/18at 23:10; Admin Dose 1 MLS/HR; Start 09/26/18 at 22:00 Naloxone HCl (Narcan) 0.1 mg Q2M PRN IV .RESP RATE; Start 09/27/18 at 11:00; Stop 09/28/18 at 10:59 Diphenhydramine HCl (Benadryl) 25 mg Q6H PRN IV .ITCHING; Start 09/27/18 at 11:00; Stop 09/28/18 at 10:59 Ondansetron HCl (Zofran Inj) 4 mg Q6H PRN IV .NAUSEA/VOMITING; Start 09/27/18 at 11:00; Stop 09/28/18 at 10:59 Trimethobenzamide HCl (Tigan) 200 mg Q6H PRN IM .NAUSEA/VOMITING; Start 09/27/18 at 11:00; Stop 09/28/18 at 10:59 Fentanyl/ Ropivacaine 100 ml EPIDURAL INFUSION EPI ; Start 09/27/18 at 11:00 Diagnostic Test (Pha) (Accu-Chek) 1 ea FASTING BLOOD SUGAR XX ; Start 09/28/18 at 06:00 Allergies: Coded Allergies: ciprofloxacin (Verified Allergy, Intermediate, RASH OVER FACE AND NECK, 02/05/18) RE-ENTERED UNCODED ALLERGY CODED Past Surgical History Past Surgical Hx: noncontributory Family History Significant Family History: diabetes Social History Alcohol Use: none Smoking Status: Never smoker Drug Use: none Exam/Review of Systems Exam Vitals Vital Signs Date Temp Pulse Resp B/P (MAP) Pulse Ox O2 O2 Flow FiO2 Time Delivery Rate 09/26/18 98.4 90 18 173/90 17:00 (117) Intake and Output 09/26/18 09/26/18 09/27/18 1515:00 23:00 07:00 IntakeIntake Total 1000 ml 1564.0 ml OutputOutput Total 400 ml 800 ml BalanceBalance 600 ml 764.0 ml Constitutional: alert, oriented Psych: no complaints, nl mood/affect Neck: supple, non-tender Respiratory: clear to auscultation, normal air movement Cardiovascular: regular rate and rhythm, nl pulses Gastrointestinal: soft, nl liver, spleen, non-tender Extremities: normal pulses Results Result Diagram: 09/26/18189909/26/181899 Results 24hrs Laboratory Tests Test 09/26/18 19:00 09/26/18 19:31 09/26/18 19:40 09/26/18 23:30 White Blood Count 8.4 Red Blood Count 3.84 L Hemoglobin 11.9 L Hematocrit 34.8 L Mean Corpuscular Volume 90.6 Mean Corpuscular 31.0 Hemoglobin Mean Corpuscular 34.2 Hemoglobin Concent Red Cell Distribution 13.0 Width Platelet Count 319 # Mean Platelet Volume 10.1 Immature Granulocytes % 0.600 H Neutrophils % 63.4 Lymphocytes % 26.6 Monocytes % 8.0 Eosinophils % 1.0 Basophils % 0.4 Nucleated Red Blood 0.0 Cells % Immature Granulocytes # 0.050 H Neutrophils # 5.4 Lymphocytes # 2.2 Monocytes # 0.7 Eosinophils # 0.1 Basophils # 0.0 Nucleated Red Blood 0.0 Cells # Prothrombin Time 12.3 Prothrombin Time Ratio 1.0 INR International 0.90 Normalized Ratio Activated 36.6 H Partial Thromboplast Time Sodium Level 136 Potassium Level 3.7 Chloride Level 104 Carbon Dioxide Level 21 Anion Gap 11 Blood Urea Nitrogen 12 Creatinine 0.57 Est Glomerular Filtrat > 60 Rate mL/min Glucose Level 104 Uric Acid 4.3 Calcium Level 8.8 Total Bilirubin 0.1 L Direct Bilirubin 0.00 Indirect Bilirubin 0.1 Aspartate Amino 14 L Transf (AST/SGOT) Alanine 8 L Aminotransferase (ALT/SG PT) Alkaline Phosphatase 134 H Total Protein 6.9 Albumin 3.4 Globulin 3.50 H Albumin/Globulin Ratio 0.97 Bedside Glucose 120 105 Hepatitis B Surface NEGATIVE Antigen Test 09/27/18 02:21 09/27/18 04:39 09/27/18 06:33 09/27/18 08:38 Bedside Glucose 99 123 103 103 Test 09/27/18 11:00 09/27/18 13:35 Bedside Glucose 119 154 Medications Medication Current Medications Lactated Ringer's 1,000 ml @ 125 mls/hr Q8H IV Last administered on 09/27/18at 09:53; Admin Dose 125 MLS/HR; Start 09/26/18 at 18:37 Dextrose/Lactated Ringer's 1,000 ml @ 125 mls/hr Q8H IV Last administered on at 02:51; Admin Dose 125 MLS/HR; Start 09/26/18 at 18:37 Lidocaine (Xylocaine 1% (Mpf)) 30 ml ONCE PRN INJ .EPISIOTOMY; Start 09/26/18 at 19:00 Oxytocin/Lactated Ringer's 500 ml @ 500 mls/hr ONCE POST IV ; Start 09/26/18 at 19:00 Oxytocin/Lactated Ringer's 500 ml @ 125 mls/hr POST IV Last administered on 09/27/18at 13:08; Admin Dose 125 MLS/HR; Start 09/26/18 at 19:00 Oxytocin/Lactated Ringer's 500 ml @ 0 mls/hr ONCE PRN IV .VAGINAL BLEEDING; Start 09/26/18 at 19:00 Methylergonovine Maleate (Methergine) 0.2 mg ONCE PRN IM .VAGINAL BLEEDING; Start 09/26/18 at 19:00 Carboprost Tromethamine (Hemabate) 250 mcg ONCE PRN IM .VAGINAL BLEEDING; Start 09/26/18 at 19:00 Misoprostol (Cytotec) 1,000 mcg ONCE PRN VT .VAGINAL BLEEDING; Start 09/26/18 at 19:00 Ampicillin 50 ml @ 100 mls/hr Q4H IV Last administered on 09/27/18at 10:40; Admin Dose 100 MLS/HR; Start 09/27/18 at 02:00 Oxytocin/Lactated Ringer's 500 ml @ 0 mls/hr FOR INDUCTION IV Last administered on 09/26/18at 23:10; Admin Dose 1 MLS/HR; Start 09/26/18 at 22:00 Naloxone HCl (Narcan) 0.1 mg Q2M PRN IV .RESP RATE; Start 09/27/18 at 11:00; Stop 09/28/18 at 10:59 Diphenhydramine HCl (Benadryl) 25 mg Q6H PRN IV .ITCHING; Start 09/27/18 at 11:00; Stop 09/28/18 at 10:59 Ondansetron HCl (Zofran Inj) 4 mg Q6H PRN IV .NAUSEA/VOMITING; Start 09/27/18 at 11:00; Stop 09/28/18 at 10:59 Trimethobenzamide HCl (Tigan) 200 mg Q6H PRN IM .NAUSEA/VOMITING; Start 09/27/18 at 11:00; Stop 09/28/18 at 10:59 Fentanyl/ Ropivacaine 100 ml EPIDURAL INFUSION EPI ; Start 09/27/18 at 11:00 Diagnostic Test (Pha) (Accu-Chek) 1 ea FASTING BLOOD SUGAR XX ; Start 09/28/18 at 06:00 MAYNOR SOSA MD Sep 27, 2018 16:34
[2018-09-27] MEDS ORDERED: WITCH HAZEL/GLYCERIN PAD PR PRN (17:00)
[2018-09-27] MEDS ORDERED: BENZOCAINE 20% 56 ML SPRAY TOP PRN (17:00)
[2018-09-27] MEDS ORDERED: ACETAMINOPHEN 325 MG TAB PO PRN (17:00)
[2018-09-27] MEDS ORDERED: DIBUCAINE 1% 30 GM OINT TOP PRN (17:00)
[2018-09-27] MEDS ORDERED: CARBOPROST 250 MCG INJ IM PRN (17:00)
[2018-09-27] MEDS ORDERED: MISOPROSTOL 200 MCG TAB PR PRN (17:00)
[2018-09-27] MEDS ORDERED: HYDROCODONE/APAP (5/325) TAB PO PRN (17:00)
[2018-09-27] MEDS ORDERED: OXYTOCIN 30 UNITS/LR 500 ML IV PRN (17:00)
[2018-09-27] MEDS: LACTATED RINGER'S 1,000 ML IV* SCH (17:35)
[2018-09-27] MEDS: IBUPROFEN 600 MG TAB PO SCH (18:13)
[2018-09-27] MEDS: metFORMIN 500 MG TAB PO SCH (18:14)
[2018-09-27] MEDS ORDERED: GLUCOSE GEL 15 GRAM TUBE PO PRN ×2 (19:00)
[2018-09-27] MEDS ORDERED: GLUCAGON 1 MG INJ IM PRN (19:00)
[2018-09-27] MEDS ORDERED: GLUCOSE GEL 15 GRAM TUBE BUCCAL PRN (19:00)
[2018-09-27] MEDS ORDERED: DEXTROSE 50% 50 ML SYRINGE IV PRN ×2 (19:00)
[2018-09-27 20:00] VITALS: BP 119/64; PULSE 85; RESP 20
[2018-09-27] MEDS ORDERED: METOPROLOL (XL) 25 MG TAB PO SCH (21:00)
[2018-09-27] MEDS: SENNA/DOCUSATE NA (8.6MG/50MG) TAB PO SCH (21:17)
[2018-09-27] MEDS: INSULIN GLARGINE [LANTus] (100 UNITS/ML) SYG SC SCH (21:18)
[2018-09-27] MEDS: INSULIN ASPART [NOVOLOG] 3 ML PEN SC SCH (21:37)
[2018-09-28] MEDS: IBUPROFEN 600 MG TAB PO SCH ×4 (00:16→17:51)
[2018-09-28 00:30] VITALS: BP 112/79; PULSE 78; RESP 20
[2018-09-28] MEDS: LACTATED RINGER'S 1,000 ML IV* SCH (00:35)
[2018-09-28] MEDS: ACCU-CHEK XX SCH ×2 (02:00→06:00)
[2018-09-28 04:03] VITALS: BP 117/73; PULSE 79; RESP 18
[2018-09-28 08:00] VITALS: BP 119/76; PULSE 79; RESP 18
[2018-09-28] MEDS ORDERED: METF-849 PO (08:47)
[2018-09-28] MEDS ORDERED: NPH,100I5 SQ (08:47)
--- NOTE | 2018-09-28 08:49 | CONS ---
Assessment/Plan Assessment/Plan Problems: (1) Diabetes mellitus type 2 in obese Status: Chronic Comment: She is stable for discharge. We will have her on metformin with NPH at bedtime for insulin control. Her initial view of this looks like it will work quite nicely. He can be modified by her primary team at [facility] or she can be seen in my office where she would be more than welcome. When she is done breast-feeding we can look at modifying the regimen to not include insulin unless she would like to continue with insulin (2) Asthma, mild intermittent Status: Chronic Comment: Quiescent at this time Qualifiers: Asthma complication type: uncomplicated Qualified Codes: J45.20 - Mild intermittent asthma, uncomplicated (3) Migraine syndrome Status: Chronic Comment: Quiescent at this time (4) 4 para 4 Comment: Successful outcome. She reports no immediate plans for in the future Consultation Date/Type/Reason Admit Date/Time Sep 26, 2018 at 18:15 Initial Consult Date 09/27/18 Type of Consult Endocrinology Reason for Consultation Diabetes mellitus type II; ideally with plans for breast-feeding Requesting Provider: TEODORA BRASHER MD Date/Time of Note DATE: 09/28/18 TIME: 08:47 24 HR Interval Summary Free Text/Dictation Patient has done well will be discharged today. She reports that she has an adequate supply of Humulin NPH insulin at home, and metformin. Constitutional: no complaints Detailed Summary Endocrine: no complaints Exam/Review of Systems Exam Vitals Vital Signs Date Temp Pulse Resp B/P (MAP) Pulse Ox O2 O2 Flow FiO2 Time Delivery Rate 09/28/18 98.9 79 18 117/73 Room Air 04:03 (88) Intake and Output 09/27/18 09/27/18 09/28/18 1515:00 23:00 07:00 IntakeIntake Total 1331 ml 687.5 ml OutputOutput Total 1160 ml 1600 ml BalanceBalance 171 ml -912.5 ml Constitutional: alert, oriented Respiratory: clear to auscultation, normal air movement Cardiovascular: regular rate and rhythm, nl pulses Gastrointestinal: soft, nl liver, spleen, non-tender Results Result Diagram: 09/26/18189909/26/181899 Results 24hrs Laboratory Tests Test 09/27/18 11:00 09/27/18 13:35 09/27/18 16:21 09/27/18 18:11 Bedside Glucose 119 154 254 H Hepatitis C Antibody NEGATIVE Test 09/27/18 21:20 09/28/18 02:00 Bedside Glucose 222 H 175 Medications Medication Current Medications Diagnostic Test (Pha) (Accu-Chek) 1 ea FASTING BLOOD SUGAR XX ; Start 09/28/18 at 06:00 Metformin HCl (Glucophage) 500 mg BID WITH MEALS PO Last administered on 09/27/18 18:14; Admin Dose 500 MG; Start 09/27/18 at 18:05 Ibuprofen (Motrin) 600 mg Q6 PO Last administered on 09/28/18at 05:48; Admin Dose 600 MG; Start 09/27/18 at 18:00 Acetaminophen (Tylenol Tab) 650 mg Q4H PRN PO .PAIN 1-5; Start 09/27/18 at 17:00 Acetaminophen/ Hydrocodone Bitart ([place] (5/325)) 1 tab Q4H PRN PO .PAIN 1-5; Start 09/27/18 at 17:00 Senna/Docusate Sodium (Senokot-S) 1 tab BID PO Last administered on 09/27/18at 21:17; Admin Dose 1 TAB; Start 09/27/18 at 21:00 Witch Yvonne/ Glycerin (Tucks Pads) 1 pad BEDSIDE MEDICATION PRN IL .HEMORRHOID/EPISIOTOMY PAIN Last administered on 09/27/18at 17:34; Admin Dose 1 PAD; Start 09/27/18 at 17:00 Benzocaine (Dermoplast [place]comb) 1 spray BEDSIDE MEDICATION PRN TOP .HEMMORHOID/EPISIOTOMY PAIN Last administered on 09/27/18at 17:34; Admin Dose 1 SPRAY; Start 09/27/18 at 17:00 Dibucaine (Nupercainal) 1 applic BEDSIDE MEDICATION PRN TOP .HEMMORHOID/EPISIOTOMY; Start 09/27/18 at 17:00 Diphtheria/ Tetanus/Acell Pertussis (Adacel) 0.5 ml ONCE ONCE IM* ; Start 09/29/18 at 09:00; Stop 09/29/18 at 09:01 Oxytocin/Lactated Ringer's 500 ml @ 0 mls/hr ONCE PRN IV .VAGINAL BLEEDING; Start 09/27/18 at 17:00 Carboprost Tromethamine (Hemabate) 250 mcg ONCE PRN IM .VAGINAL BLEEDING; Start 09/27/18 at 17:00 Misoprostol (Cytotec) 1,000 mcg ONCE PRN IL .VAGINAL BLEEDING; Start 09/27/18 at 17:00 Metoprolol Succinate (Toprol Xl) 25 mg BID PO Last administered on 09/27/18at 21:57; Admin Dose 25 MG; Start 09/27/18 at 21:00 Diagnostic Test (Pha) (Accu-Chek) 1 ea 02 XX Last administered on 09/28/18at 02:00; Admin Dose 1 EA; Start 09/28/18 at 02:00 Insulin Glargine (Lantus) 14 units DAILY@2000 SC Last administered on 09/27/18at 21:18; Admin Dose 14 UNITS; Start 09/27/18 at 20:00 Insulin Aspart (Novolog Insulin Pen) NOVOLOG *MODERATE* ALGORITHM WITH MEALS BEDTIME SC Last administered on 09/27/18at 21:37; Admin Dose 2 UNIT; Start 09/27/18 at 21:00 Miscellaneous Information 1 ea NOTE XX ; Start 09/27/18 at 19:00 Glucose (Glutose) 15 gm Q15M PRN PO DECREASED GLUCOSE; Start 09/27/18 at 19:00 Glucose (Glutose) 22.5 gm Q15M PRN PO DECREASED GLUCOSE; Start 09/27/18 at 19:00 Dextrose (D50w Syringe) 25 ml Q15M PRN IV DECREASED GLUCOSE; Start 09/27/18 at 19:00 Dextrose (D50w Syringe) 50 ml Q15M PRN IV DECREASED GLUCOSE; Start 09/27/18 at 19:00 Glucagon (Glucagen) 1 mg Q15M PRN IM DECREASED GLUCOSE; Start 09/27/18 at 19:00 Glucose (Glutose) 15 gm Q15M PRN BUCCAL DECREASED GLUCOSE; Start 09/27/18 at 19:00 MAYNOR SOSA MD Sep 28, 2018 08:49
[2018-09-28] MEDS: SENNA/DOCUSATE NA (8.6MG/50MG) TAB PO SCH ×2 (08:55→21:00)
[2018-09-28] MEDS: metFORMIN 500 MG TAB PO SCH ×2 (08:55→18:01)
[2018-09-28] MEDS: INSULIN ASPART [NOVOLOG] 3 ML PEN SC SCH ×4 (09:50→21:00)
[2018-09-28 16:00] VITALS: BP 116/80; PULSE 76; RESP 16
--- NOTE | 2018-09-28 18:35 | QN ---
Documentation Comment No complaint Afebrile VSS Fundus firm Lochia scant PPD #1 Stable Continue present care. TEODORA BRASHER MD Sep 28, 2018 18:35
[2018-09-28 19:55] VITALS: BP 122/87; PULSE 73; RESP 18
[2018-09-28] MEDS: INSULIN GLARGINE [LANTus] (100 UNITS/ML) SYG SC SCH (20:47)
[2018-09-29] MEDS: ACCU-CHEK XX SCH ×3 (02:00→08:24)
[2018-09-29 04:10] VITALS: BP 107/68; PULSE 81; RESP 18
[2018-09-29] MEDS: IBUPROFEN 600 MG TAB PO SCH ×3 (06:00→11:28)
[2018-09-29] MEDS: INSULIN ASPART [NOVOLOG] 3 ML PEN SC SCH ×2 (08:05→12:43)
[2018-09-29 08:20] VITALS: BP 114/92; PULSE 81; RESP 16
[2018-09-29] MEDS: SENNA/DOCUSATE NA (8.6MG/50MG) TAB PO SCH (08:29)
[2018-09-29] MEDS: metFORMIN 500 MG TAB PO SCH (08:29)
[2018-09-29] MEDS ORDERED: DIPHTH/TET/ACEL PERTUSS (ADULT) 0.5 ML VIAL IM* ONE (09:00)
--- NOTE | 2018-09-29 12:44 | CONS ---
Assessment/Plan Assessment/Plan Problems: (1) Diabetes mellitus type 2 in obese Status: Chronic Comment: Adequate control at this time on combination of all oral agents with insulin. Please note we are choosing this regimen for the purpose that the mother will be able to breast-feed. Should be followed up in 4 weeks. Consultation Date/Type/Reason Admit Date/Time Sep 26, 2018 at 18:15 Initial Consult Date 09/27/18 Type of Consult Endocrinology Reason for Consultation Is mellitus type II now ; Ab0; migraine syndrome; asthma intermittent mild Requesting Provider: TEODORA BRASHER MD Date/Time of Note DATE: 09/29/18 TIME: 12:43 24 HR Interval Summary Free Text/Dictation Patient is stable and doing well. Please see the Accu-Chek records Constitutional: no complaints Detailed Summary Endocrine: no complaints Exam/Review of Systems Exam Vitals Vital Signs Date Temp Pulse Resp B/P (MAP) Pulse Ox O2 O2 Flow FiO2 Time Delivery Rate 09/29/18 98.3 81 16 114/92 Room Air 08:20 (99) Exam No change in examination Constitutional: alert, oriented Respiratory: clear to auscultation, normal air movement Cardiovascular: regular rate and rhythm, nl pulses Results Result Diagram: 09/28/18 0828 09/26/18 1900 Results 24hrs Laboratory Tests Test 09/28/18 12:59 09/28/18 16:09 09/28/18 17:50 09/28/18 20:32 Bedside Glucose 129 168 154 169 Test 09/29/18 08:21 09/29/18 12:34 Bedside Glucose 124 151 Medications Medication Current Medications Diagnostic Test (Pha) (Accu-Chek) 1 ea FASTING BLOOD SUGAR XX Last administered on 09/29/18at 08:24; Admin Dose 1 EA; Start 09/28/18 at 06:00 Metformin HCl (Glucophage) 500 mg BID WITH MEALS PO Last administered on 06/09at 08:29; Admin Dose 500 MG; Start 09/27/18 at 18:05 Ibuprofen (Motrin) 600 mg Q6 PO Last administered on 09/29/18at 11:28; Admin Dose 600 MG; Start 09/27/18 at 18:00 Acetaminophen (Tylenol Tab) 650 mg Q4H PRN PO .PAIN 1-5; Start 09/27/18 at 17:00 Acetaminophen/ Hydrocodone Bitart ([place] (5/325)) 1 tab Q4H PRN PO .PAIN 1-5; Start 09/27/18 at 17:00 Senna/Docusate Sodium (Senokot-S) 1 tab BID PO Last administered on 09/29/18at 08:29; Admin Dose 1 TAB; Start 09/27/18 at 21:00 Witch Yvonne/ Glycerin (Tucks Pads) 1 pad BEDSIDE MEDICATION PRN AR .HEMORRHOID/EPISIOTOMY PAIN Last administered on 09/27/18at 17:34; Admin Dose 1 PAD; Start 09/27/18 at 17:00 Benzocaine (Dermoplast [place]) 1 spray BEDSIDE MEDICATION PRN TOP .HEMMORHOID/EPISIOTOMY PAIN Last administered on 09/27/18at 17:34; Admin Dose 1 SP RAY; Start 09/27/18 at 17:00 Dibucaine (Nupercainal) 1 applic BEDSIDE MEDICATION PRN TOP .HEMMORHOID /EPISIOTOMY; Start 09/27/18 at 17:00 Oxytocin/Lactated Ringer's 500 ml @ 0 mls/hr ONCE PRN IV .VAGINAL BLEEDING; Start 09/27/18 at 17:00 Carboprost Tromethamine (Hemabate) 250 mcg ONCE PRN IM .VAGINAL BLEEDING; Start 09/27/18 at 17:00 Misoprostol (Cytotec) 1,000 mcg ONCE PRN AR .VAGINAL BLEEDING; Start 09/27/18 at 17:00 Diagnostic Test (Pha) (Accu-Chek) 1 ea 02 XX Last administered on 09/28/18at 02:00; Admin Dose 1 EA; Start 09/28/18 at 02:00 Insulin Glargine (Lantus) 14 units DAILY@2000 SC Last administered on 09/28/18at 20:47; Admin Dose 14 UNITS; Start 09/27/18 at 20:00 Insulin Aspart (Novolog Insulin Pen) NOVOLOG *MODERATE* ALGORITHM WITH MEALS BEDTIME SC Last administered on 09/28/18at 18:00; Admin Dose 2 UNIT; Start 09/27/18 at 21:00 Miscellaneous Information 1 ea NOTE XX ; Start 09/27/18 at 19:00 Glucose (Glutose) 15 gm Q15M PRN PO DECREASED GLUCOSE; Start 09/27/18 at 19:00 Glucose (Glutose) 22.5 gm Q15M PRN PO DECREASED GLUCOSE; Start 09/27/18 at 19:00 Dextrose (D50w Syringe) 25 ml Q15M PRN IV DECREASED GLUCOSE; Start 09/27/18 at 19:00 Dextrose (D50w Syringe) 50 ml Q15M PRN IV DECREASED GLUCOSE; Start 09/27/18 at 19:00 Glucagon (Glucagen) 1 mg Q15M PRN IM DECREASED GLUCOSE; Start 09/27/18 at 19:00 Glucose (Glutose) 15 gm Q15M PRN BUCCAL DECREASED GLUCOSE; Start 09/27/18 at 19:00 MAYNOR SOSA MD Sep 29, 2018 12:44
--- NOTE | 2018-09-29 14:12 | NSTRPT ---
NST Information Datetime Report Generated by CPN: 09/29/2018 14:11 Datetime: 09/25/2018 14:30 Reason for NST: Diabetes Mellitus; Other Reason for NST Other: TYPE II Comments: NST ONLY-SENT TO TRIAGE FOR NST SHE DOES NOT HAVE AUTHORIZATION TO HAVE TEST IN THE [facility] APPT MADE FOR 09/30 @ 1300. RECORDS FAXED TO TRIAGE WITH REPORT TO S PRASHANT RN Datetime: 09/24/2018 11:45 NST Information EGA: 38.0 Test Number: 9 Time on Monitor: 09/24/2018 12:05 Time off Monitor: 09/24/2018 12:38 NST Duration (Min): 33 Reason for NST: Diabetes Mellitus; Other Reason for NST Other: TypeII Test and Monitor Explained: Monitor Explained; Test Explained; Verbalized Understanding Pulse: 88 Resp: 18 SBP: 113 DBP: 77 Test Evaluation NST Interventions: Reposition Patient Patient States Movement: Present Contraction Frequency: X1(mild) FHR Baseline : 150 Variability: Moderate 6-25bpm Accelerations: 15X15 Decelerations: Variable FHR Category: Category I NST Results: Reactive Comments: NST ONLY. FBS 102. Strip reviewed by Dr. Weston before discharge. Pt to come back tomorro w for repeat NST Electronically Signed By E-Signature: with User ID: [id number] Datetime: 09/23/2018 13:14 NST Information EGA: 37.6 Test Number: 8 Time on Monitor: 09/23/2018 13:31 Time off Monitor: 09/23/2018 14:17 NST Duration (Min): 46 Reason for NST: Diabetes Mellitus; Other Reason for NST Other: Type II Test and Monitor Explained: Monitor Explained; Test Explained; Verbalized Understanding Pulse: 83 Resp: 18 SBP: 121 DBP: 79 Test Evaluation NST Interventions: Reposition Patient Patient States Movement: Present Contraction Frequency: NONE FHR Baseline : 140 Variability: Moderate 6-25bpm Accelerations: 15X15 Decelerations: Variable FHR Category: Category II NST Results: Non-Reactive Comments: To u/s, BEL 13.3, Cephalic. FBS 108. 1352-NST Reviewed by Dr Weston, recommends extended monitoring, 1400-Report to Dr Tabor includin g Dr Weston's recommendation, order received to send to triage. 1404-Report to Diego Gallegos 15x15 accelarations befoe patient left office. Datetime: 09/19/2018 10:30 NST Information EGA: 37.2 NST Duration (Min): 37 Datetime: 09/16/2018 13:24 NST Information EGA: 36.6 NST Duration (Min): 31 Datetime: 09/12/2018 13:35 NST Information EGA: 36.2 NST Duration (Min): 24 Datetime: 09/10/2018 13:36 NST Information EGA: 36.0 NST Duration (Min): 30 Datetime: 09/01/2018 09:57 NST Information EGA: 34.5 NST Duration (Min): 44 Datetime: 08/28/2018 10:18 NST Information EGA: 34.1 NST Duration (Min): 46 Datetime: 08/25/2018 13:34 NST Information EGA: 33.5 NST Duration (Min): 35 Datetime: 08/21/2018 14:25 NST Information EGA: 33.1 NST Duration (Min): 28
--- NOTE | 2018-09-29 14:31 | NSTRPT ---
NST Information Datetime Report Generated by CPN: 09/29/2018 14:31 Datetime: 09/23/2018 13:14 Electronically Signed By E-Signature: with User ID: [id number]
--- NOTE | 2018-09-29 14:35 | DS ---
Date/Time of Note Date/Time of Note DATE: 09/29/18 TIME: 14:35 Obstetrical Discharge Record Final Diagnosis Final Diagnosis: Term delivered Vaginal Delivery Obstetrical Delivery: Spontaneous Complications Insulin Dependent Diabete, Preg induced Hypertension Induction: Yes Condition on Discharge Physical Assessment Voiding: Yes Bowel Movement: Yes Breast: Soft, non-tender, Filling Fundus: Firm Calf Tenderness: No Patient Condition: Stable TEODORA BRASHER MD Sep 29, 2018 14:35
[2018-09-29 14:45] VITALS: BP 134/88; PULSE 88; RESP 18
== END 2018-09-29 16:30 | disposition home or self-care (01) | DRG 807 ==
LOC: OBT 16:32 → L-D 16:33 → OBT 18:15 → L-D 18:15 → PP1 09-27 16:11
PROVIDERS: ADMIT Obstetrics & Gynecology; ATTEND Obstetrics & Gynecology
PROC: 3E033VJ Introduction of Other Hormone into Peripheral Vein, Percutaneous Approach (ICD-10-PCS; 2018-09-26)
PROC: 10E0XZZ Delivery of Products of Conception, External Approach (ICD-10-PCS; principal; 2018-09-27)
DX: O14.94 Unspecified pre-eclampsia, complicating childbirth (principal); O24.12 Pre-existing type 2 diabetes mellitus, in childbirth; E11.9 Type 2 diabetes mellitus without complications; Z3A.38 38 weeks gestation of pregnancy; Z37.0 Single live birth; Z79.4 Long term (current) use of insulin
CPT/HCPCS: 62319; 76815; 76818; 80053; 82962; 84560; 85025; 85610; 85730; 86592; 86803; 86850; 86900; 86901; 87340; 90715; G0463; J0290; J1815; J2590; J3010; J7120; J7121